=== PATIENT | female | born 2005 | race Caucasian/White ===

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

== ENCOUNTER → 2025-05-29 08:14 | Outpatient (REF) | payer OTHER, SELFPAY | LOC: PAVMRI 08:14 | PROVIDERS: ATTENDING PHYSICIAN Psychiatry & Neurology Neurology; FAMILY PHYSICIAN Internal Medicine | DX: R51.9 Headache, unspecified (principal) | CPT/HCPCS: 70551 ==

== ENCOUNTER → 2025-06-21 14:09 | Outpatient (REF) | payer OTHER, SELFPAY | LOC: HWRAD 14:09 | PROVIDERS: ATTENDING PHYSICIAN Otolaryngology Facial Plastic Surgery; FAMILY PHYSICIAN Internal Medicine | DX: J32.0 Chronic maxillary sinusitis (principal); J33.0 Polyp of nasal cavity; J34.2 Deviated nasal septum | CPT/HCPCS: 70486 ==

== ENCOUNTER 2025-06-27 09:31 | Emergency (ER) | payer OTHER, SELFPAY ==
[2025-06-27 09:34] VITALS: BP 135/99
--- NOTE | 2025-06-27 10:01 | ED.GENMED ---
History of Present Illness
General
Chief Complaint: Dizziness
Source: patient and family
Exam Limitations: none
Time Seen by Provider: 06/27/25 09:41
History of Present Illness
History of Present Illness:
See MDM
Past History
Past History
ED Past Medical History: None
ED Past Surgical History: Orthopedic (Right shoulder surgery, left ACL repair)
Social History
Tobacco: Non-smoker
Alcohol: None
Drug: None
Phy Exam
Physical Exam
Physical Exam:
See MDM
Course
Orders/Labs/Results
Orders:
Orders
06/27/25 09:56
0.9% Sodium Chloride 1000 ml [Nss] 1,000 ml IV BOLUS
Meclizine [Antivert] 25 mg PO NOW STA
Test Result ONCE
06/27/25 10:03
Complete Blood Count/With Diff Urgent
Comprehensive Metabolic Panel Urgent
HCG, Serum Qualitative Screen Urgent
Abnormal Lab Results
06/27/25
10:03
MPV 10.5 H fL
(7.4-10.4)
Absolute Neuts (auto) 6.6 H 10^3/uL
(1.4-6.5)
Neutrophils % 77.3 H %
(42.2-75.2)
Lymphocytes % 15.6 L %
(20.5-51.1)
Glucose 101 H mg/dl
(70-99)
Total Bilirubin 1.5 H mg/dl
(0.2-1.3)
Alkaline Phosphatase 37 L U/L
(38-126)
06/27/25 10:03
06/27/25 10:03
Vital Signs
Initial and Last Documented VS:
Initial Vital Signs
Temp Pulse Resp BP Pulse Ox
98.0 F 90 14 135/99 99
06/27/25 09:34 06/27/25 09:34 06/27/25 09:34 06/27/25 09:34 06/27/25 09:34
Last Documented Vital Signs
Temp Pulse Resp BP Pulse Ox
98.0 F 90 14 135/99 99
06/27/25 10:00 06/27/25 09:34 06/27/25 09:34 06/27/25 09:34 06/27/25 10:03
MDM/Problems Addressed
Differential Diagnosis Includes:
Note:
CHIEF COMPLAINT(S)
Dizziness
HISTORY OF PRESENT ILLNESS
The patient is a 19-year-old female who presents with complaints of dizziness. These symptoms began several days ago and have been episodic in nature. The patient reports an episode of dizziness occurring after waking up, which persisted until she
had something to eat, leading to temporary relief. The dizziness recurred the following mornings but seemed to improve with meals. The patient describes the sensation as feeling lightheaded rather than experiencing the room spinning. She denies any
recent viral infections, congestion, hearing loss, or fevers. She has experienced similar symptoms recently which resolved. No serious interventions have been performed previously.
PHYSICAL EXAM
General: Alert, no acute distress. Becomes somewhat orthostatic when quickly changed from supine to upright position
Skin: Warm, dry.
Head: Normocephalic, atraumatic
Neck: Appears supple, trachea midline.
Eyes, Ears, Nose, Mouth, and Throat: Oral mucosa moist. Mild clear fluid behind both TMs. Positive [place]-Hallpike to the right
Cardiovascular: No signs of cyanosis. Regular rate and rhythm
Respiratory: Respirations are non-labored.
Abdomen: Non-distended
Musculoskeletal: No deformities
Neurological: No focal neurological deficit observed. Normal finger-nose bilaterally. Negative Romberg sign
Psychiatric: Cooperative, appropriate mood and affect.
PLAN
1. Administer intravenous fluids to address potential dehydration.
2. Conduct blood work to evaluate hematologic status.
3. Prescribe Meclizine for symptomatic relief of dizziness.
4. Re-evaluate the patient post-treatment to assess resolution of symptoms.
5. Discuss future considerations including the potential for an MRI if symptoms persist or worsen over time.
DIFFERENTIAL DIAGNOSIS
The Differential Diagnosis includes, in no particular order and is not limited to:
1. Benign Paroxysmal Positional Vertigo (BPPV)
2. Labyrinthitis
3. Vestibular Neuritis
4. Dehydration
5. Orthostatic Hypotension
6. Hypoglycemia
7. Migraine-Associated Vertigo
8. Anemia
9. Ear Infection
10. Anxiety-Related Dizziness
06/27/25 - :03
Reviewed prior MRI results, noting a 1.6 cm incidental arachnoid cyst in the brain, with no current symptoms prompting treatment alteration.
06/27/25 - 11:13
The patients blood work results are satisfactory, and IV fluids have been completed. The patient reports feeling better and expresses a desire to go home. Earlier consideration for an MRI was dismissed since a recent scan a month ago showed an
arachnoid cyst with low clinical significance. The cyst is benign and not linked to the patients current visit. If symptoms like persistent headaches or dizziness occur in the future, repeat imaging might be considered to assess for cyst growth.
Prescribing Meclizine on an as-needed basis for symptom management. The patient is advised to resume normal activities without any specific restrictions.
SUMMARY OF ENCOUNTER
The patient, a 19-year-old female, presented to the emergency department with complaints of dizziness. Episodes primarily occurred in the mornings and improved with meals, suggesting a potential link to hypoglycemia or dehydration. The patient
denied associated viral symptoms such as viral infections, congestion, hearing loss, or fevers. Initial assessment revealed mild fluid behind the right ear, but this was not deemed significant. A prior MRI showed a benign incidental arachnoid cyst
with no current symptoms associated. The patient received intravenous fluids and was prescribed meclizine, leading to symptom resolution.
DISPOSITION
Discharge.
ASSESSMENT
Dizziness potentially related to dehydration or hypoglycemia, with symptomatic management improving the condition.
EMERGENCY TREATMENTS ADMINISTERED
Administered intravenous fluids. Prescribed Meclizine for dizziness.
REASSESSMENT
Symptoms resolved post-treatment with IV fluids and meclizine.
PLAN
The patient was advised to follow up with her primary care physician (PCP) regarding the incidental arachnoid cyst findings and to discuss return precautions. She was instructed to monitor for any persistent or worsening symptoms and to seek medical
attention if necessary.
INDEPENDENT REVIEW OF LABS AND INTERPRETATION OF TESTS
My independent review of the recent MRI indicated a benign arachnoid cyst with low clinical significance, aligning with previous imaging results.
PATIENT EDUCATION AND COUNSELING
Discussed the previous MRI findings and the lack of current symptoms related to the arachnoid cyst. Advised discussing these findings further with her PCP. Provided education on the return precautions.
FOLLOW-UP INSTRUCTIONS
The patient was instructed to follow up with her primary care physician to discuss the incidental MRI findings and for ongoing monitoring of her symptoms.
MEDICATION RECONCILIATION
Meclizine was prescribed for symptomatic relief of dizziness.
MEDICAL DECISION MAKING
-Number and Complexity of Problems Addressed: The differential diagnosis included benign paroxysmal positional vertigo, labyrinthitis, vestibular neuritis, dehydration, orthostatic hypotension, hypoglycemia, migraine-associated vertigo, anemia, ear
infection, and anxiety-related dizziness.
-Data:
Category 1: My independent review of the patients MRI indicated the incidental finding of an arachnoid cyst which was deemed clinically insignificant at this time.
Category 3: Discussion with the patient regarding MRI findings and the management plan was conducted.
-Risk: Prescription medication was prescribed. Escalation of care including admission/observation was considered given the complexity and risk of the patients presenting complaint. However, the patient is safe for outpatient management with close
follow-up. Work-up reassuring, symptoms well controlled upon reevaluation, and patient agreeable with discharge, reliable for follow-up.
DIAGNOSIS
1. Dizziness (R42)
2. Incidental finding of benign arachnoid cyst (Q04.3)
*Pulse Oximetry
SaO2: 99
Patient hypoxic: no
*Critical Care Note
Total Time (30-74mins, 75-104mins- exclusive of procedures): Not Applicable
ED Attending Note
-
Portions of this chart may have been created with voice recognition software.� Occasional wrong word or��sound alike� substitutions may have occurred due to the inherent limitations of voice recognition software.
Discharge Plan
Departure
Patient Disposition: Home (Routine Discharge)
Date of Disposition: 06/27/25
Time of Disposition: 11:13
Patient with high blood pressure during this ER visit?: No
Discharge Problem:
Vertigo
Prescriptions:
New
meclizine 25 mg tablet
25 mg PO BID PRN (Reason: dizziness) Qty: 14 0RF
No Action
ondansetron 4 mg tablet,disintegrating
4 mg PO Q8H PRN (Reason: nausea and vomiting) Qty: 7 0RF
famotidine 20 mg tablet
20 mg PO BID Qty: 14 0RF
Referrals:
Aura Alatorre MD [Family Provider, Internal Medicine]
Activity Restrictions/Additional Instructions:
Please return for any worsening symptoms.
You may return at any time if you have further concerns.
Please follow up with your doctor at the first available appointment.
Thank you for choosing [facility].
Interventions
Interventions:
*Risk Screen - Suicide Last Done: 06/27/25 09:38
*General Assessment Last Done: 06/27/25 10:13
*Neglect/Abuse Screening Last Done: 06/27/25 09:38
*ED- Fall Risk Assessment Last Done: 06/27/25 10:13
*ED COVID-19 Vaccine History Last Done: 06/27/25 10:13
ED- Neurological Assessment Last Done: 06/27/25 10:13
ED Swallowing Screen Last Done: 06/27/25 10:13
Discharge Date and Time
Print Language: TURKMEN
[2025-06-27] MEDS: ANTIVERT 25 MG PO (10:03)
[2025-06-27] MEDS: NSS 1000 IV (10:05)
[2025-06-27 10:13] VITALS: BMI 22.8
[2025-06-27 10:15] LABS: Hematocrit 40.3 % (37.0-47.0); Hemoglobin 13.8 g/dL (12.0-16.0); Mean Corp Hgb Conc. 34.2 g/dL (33.0-37.0); Mean Corpuscular Volume 88.0 fL (81.0-99.0); Nucleated Red Blood Cells % 0 %; Platelet Count 294 10^3/uL (130-400); Red Cell Dist. Width 12.6 % (11.5-14.5)
[2025-06-27 10:30] LABS: HCG, Serum Qualitative Screen Negative
[2025-06-27 10:34] LABS: ALT (SGPT) 16 U/L (0-35); AST (SGOT) 19 U/L (14-36); Albumin 4.9 g/dl (3.5-5.0); Alkaline Phosphatase 37 U/L (38-126); Blood Urea Nitrogen 9 mg/dl (7-17); Calcium 10.0 mg/dl (8.4-10.2); Carbon Dioxide 24 mmol/L (22-30); Chloride 104 mmol/L (98-107); Estimated Creatinine Clearance 125 ml/min; Glucose 101 mg/dl (70-99); Potassium 4.1 mmol/L (3.5-5.1); Sodium 137 mmol/L (135-145); Total Protein 7.6 g/dl (6.3-8.2); eGFR > 60.00
== END 2025-06-27 11:41 | disposition home or self-care (01) ==
LOC: EMR 09:31
PROVIDERS: EMERGENCY PHYSICIAN Student in an Organized Health Care Education/Training Program; FAMILY PHYSICIAN Internal Medicine
DX: R42 Dizziness and giddiness (principal); G93.0 Cerebral cysts
CPT/HCPCS: 99284; 96360; 80053; 84703; 85025